=== PATIENT | male | born 1975 | race Caucasian/White ===

== ENCOUNTER 2019-10-07 23:33 | Emergency (ER) | payer SELFPAY ==
[~2019-10-07] VITALS: Ht 188 cm; Wt 79.5 kg
[2019-10-07 23:50] VITALS: BP 147/97
--- NOTE | 2019-10-07 23:54 | PHYS DOC ---
General Adult EDM: Chief Complaint: TOE PROBLEM HPI: HPI: Patient is a 43-year-old male who presents with complaint of right great toe pain and injury after he stubbed it on a 2 x 4. Patient states that injury occurred at about 4 PM and states that the pain continues to worsen. He describes it as throbbing in nature and states that it is worse with weightbearing. He denies any other injuries. [] Review of Systems: Review of Systems: Constitutional: Denies fever or chills Respiratory: Denies cough or shortness of breath Cardiovascular: Denies chest pain or edema Musculoskeletal: Positive right great toe pain Integument: Denies rash Neurologic: Denies headache, focal weakness or sensory changes Heart Score: Risk Factors: Risk Factors: DM, Current or recent (<one month) smoker, HTN, HLP, family history of CAD, obesity. Risk Scores: Score 0 - 3: 2.5% MACE over next 6 weeks - Discharge Home Score 4 - 6: 20.3% MACE over next 6 weeks - Admit for Clinical Observation Score 7 - 10: 72.7% MACE over next 6 weeks - Early Invasive Strategies Allergies: Allergies: Allergies Coded Allergies Type Severity Reaction Last Updated Verified No Known Drug Allergies 10/07/19 No Physical Exam: PE: Constitutional: Well developed, well nourished, no acute distress, non-toxic appearance. [] Cardiovascular: Regular rate and rhythm [] Lungs & Thorax: Bilateral breath sounds clear to auscultation [] Extremities: Examination of right great toe demonstrates tenderness diffusely with small amount of ecchymosis at the tip. [] Neurologic: Alert and oriented X 3, no focal deficits noted. [] Current Patient Data: Vital Signs: Vital Signs Date Time Temp Pulse Resp B/P (MAP) Pulse Ox O2 Delivery O2 Flow Rate FiO2 10/07/19 23:35 97.9 94 20 147/97 (114) 97 Room Air EKG: EKG: [] Radiology/Procedures: Radiology/Procedures: [] Course & Med Decision Making: Course & Med Decision Making Pertinent Labs and Imaging studies reviewed. (See chart for details) [] Dragon Disclaimer: Dragon Disclaimer: This electronic medical record was generated, in whole or in part, using a voice recognition dictation system. Departure Departure: Impression: Primary Impression: Toe injury Qualified Codes: S99.929A - Unspecified injury of unspecified foot, initial encounter Disposition: 07 AGAINST MEDICAL ADVICE (A medical screening examination of this patient has been performed and patient deemed to have no medical emergency. Patient has elected to follow-up as an outpatient and lieu of paying $150 co- pay.) Condition: STABLE Referrals: PCP,NO (PCP) Justification of Admission: Justification of Admission: Justification of Admission Dx: Comment: (Not applicable) PRUDENCIO HAMPTON Jr. DO Oct 07, 2019 23:54
== END 2019-10-08 01:00 | disposition left against medical advice (07) ==
LOC: ER 23:33
DX: S90.111A Contusion of right great toe without damage to nail, initial encounter (principal); W22.8XXA Striking against or struck by other objects, initial encounter; Y93.89 Activity, other specified; Y92.89 Other specified places as the place of occurrence of the external cause; Y99.8 Other external cause status
CPT/HCPCS: 99281